=== PATIENT | female | born 1995 | race Two or more races ===

== ENCOUNTER 2021-02-16 17:25 | Observation (INO) | payer OTHER ==
[~2021-02-16] VITALS: Ht 160 cm; Wt 85.3 kg
[2021-02-16] MEDS ORDERED: PREN-217 PO (17:49)
[2021-02-16] MEDS ORDERED: FOLI0.4T6 PO (17:49)
[2021-02-16 17:58] VITALS: BP 127/75
[2021-02-16 18:22] LABS: COVID AG,FIA SOURCE NASOPHARYNGEAL
[2021-02-16 19:08] LABS: ANION GAP 13 mmol/L (8-16); CALCIUM, TOTAL 9.5 mg/dL (8.8-10.5); CARBON DIOXIDE 23 mmol/L (22-29); CHLORIDE 101 mmol/L (98-107); CREATININE 0.72 mg/dL (0.60-1.30); GLOMERULAR FILTR. RATE CALC > 60 mL/min (>60); GLUCOSE,RANDOM 84 mg/dL (70-110); POTASSIUM 4.5 mmol/L (3.5-5.1); SODIUM SERUM 137 mmol/L (136-145); UREA NITROGEN, BLOOD 8 mg/dL (7-18)
[2021-02-16 19:11] LABS: BASOPHILS % (AUTO) 0.3 % (0.0-2.0); EOSINOPHILS % (AUTO) 0.5 % (1.0-6.0); HEMATOCRIT 33.7 % (36-46); HEMOGLOBIN 11.4 g/dL (12.0-16.0); LYMPHOCYTES # (AUTO) 1.5 K/uL (1.0-4.8); LYMPHOCYTES % (AUTO) 20.2 % (22.0-44.0); MEAN CORPUSCULAR HGB CONC 33.8 G/dL (31.0-37.0); MEAN CORPUSCULAR VOLUME 92 fL (80-100); MONOCYTES # (AUTO) 0.5 K/uL (0.1-1.0); MONOCYTES % (AUTO) 6.1 % (2.0-9.0); NEUTROPHILS # (AUTO) 5.4 K/uL (1.8-7.7); NEUTROPHILS % (AUTO) 72.9 % (40.0-70.0); PLATELET COUNT (AUTO) 220 K/uL (150-450); RED BLOOD CELL COUNT(AUTO) 3.68 MIL/uL (4.00-5.20); RED CELL DISTRIBUTION WIDTH 13.2 % (11.5-14.5)
[2021-02-16 19:16] LABS: ALANINE AMINOTRANSFERASE 22 U/L (12-78); ALBUMIN 2.7 g/dL (3.4-5.0); ALKALINE PHOSPHATASE 235 U/L (46-116); ASPARTATE AMINOTRANSFERASE 32 U/L (15-37); BILIRUBIN,TOTAL 0.3 mg/dL (0.1-1.0); TOTAL PROTEIN, SERUM 7.3 g/dL (6.4-8.2); URIC ACID 4.1 mg/dL (2.6-7.2)
== END 2021-02-16 20:00 | disposition home or self-care (01) ==
LOC: 4S 17:25
PROVIDERS: ADMIT Obstetrics & Gynecology; ATTEND Obstetrics & Gynecology
DX: O13.3 Gestational [pregnancy-induced] hypertension without significant proteinuria, third trimester (principal); Z20.822 Contact with and (suspected) exposure to COVID-19; Z3A.38 38 weeks gestation of pregnancy
CPT/HCPCS: 59025; 82570; 84156; 84550; 87426; 96360; 96361; 99219

== ENCOUNTER 2021-02-23 13:10 | Observation (INO) | payer OTHER ==
[~2021-02-23 13:10] MED LIST: FOLI0.4T6 PO; PREN-217 PO
[2021-02-23 15:16] LABS: COVID AG,FIA SOURCE NASOPHARYNGEAL
== END 2021-02-23 13:20 | disposition home or self-care (01) ==
LOC: 4S 13:10
PROVIDERS: ADMIT Obstetrics & Gynecology; ATTEND Obstetrics & Gynecology
DX: Z34.93 Encounter for supervision of normal pregnancy, unspecified, third trimester (principal); Z20.822 Contact with and (suspected) exposure to COVID-19; Z3A.38 38 weeks gestation of pregnancy
CPT/HCPCS: 87426; 99219

== ENCOUNTER 2021-02-24 09:55 | Inpatient (IN) | payer OTHER ==
[~2021-02-24] VITALS: Ht 160 cm; Wt 86.6 kg
[2021-02-24] MEDS ORDERED: CITRIC ACID/SODIUM CITRATE 30 ML SOLUTION UDCUP PO PRN (10:30)
[2021-02-24] MEDS ORDERED: METOCLOPRAMIDE HCL 5 MG/ML 2 ML VIAL IVP PRN (10:30)
[2021-02-24] MEDS ORDERED: OXYTOCIN 30 UNITS/LACT RINGERS 500 ML IV ONE (10:30)
[2021-02-24] MEDS ORDERED: RINGERS SOLUTION,LACTATED 1,000 ML IV PRN (10:30)
[2021-02-24 11:01] LABS: BASOPHILS % (AUTO) 0.5 % (0.0-2.0); EOSINOPHILS % (AUTO) 0.7 % (1.0-6.0); HEMATOCRIT 33.5 % (36-46); HEMOGLOBIN 11.3 g/dL (12.0-16.0); LYMPHOCYTES % (AUTO) 27.1 % (22.0-44.0); MEAN CORPUSCULAR HEMOGLOBIN 30.9 pg (26.0-34.0); MEAN CORPUSCULAR HGB CONC 33.8 G/dL (31.0-37.0); MEAN CORPUSCULAR VOLUME 92 fL (80-100); MONOCYTES # (AUTO) 0.6 K/uL (0.1-1.0); MONOCYTES % (AUTO) 8.1 % (2.0-9.0); NEUTROPHILS # (AUTO) 4.7 K/uL (1.8-7.7); NEUTROPHILS % (AUTO) 63.6 % (40.0-70.0); PLATELET COUNT (AUTO) 204 K/uL (150-450); RED BLOOD CELL COUNT(AUTO) 3.66 MIL/uL (4.00-5.20); RED CELL DISTRIBUTION WIDTH 13.5 % (11.5-14.5)
[2021-02-24] MEDS: RINGERS SOLUTION,LACTATED 1,000 ML IV SCH ×3 (11:05→21:34)
[2021-02-24] MEDS ORDERED: MISOPROSTOL 25 MCG TABLET VG ONE ×2 (11:15→17:00)
[2021-02-24 11:40] VITALS: BP 120/83
[2021-02-24] MEDS: FentaNYL CITRATE PF 100 MCG/2 ML VIAL IVP PRN ×2 (19:41→20:47)
[2021-02-24] MEDS ORDERED: OXYGEN THERAPY IH SCH (20:00)
[2021-02-24] MEDS ORDERED: ROPIVACAINE HCL/PF 0.2% 100 ML ED ONE (22:04)
[2021-02-24] MEDS ORDERED: DiphenhydrAMINE HCL 50 MG/ML VIAL IVP PRN (22:30)
[2021-02-24] MEDS ORDERED: ONDANSETRON HCL 4 MG/2 ML VIAL IVP PRN (22:30)
[2021-02-24] MEDS ORDERED: NALBUPHINE HCL 10 MG/ML VIAL IVP PRN (22:30)
[2021-02-24] MEDS ORDERED: ROPIVACAINE HCL/PF 0.2% 100 ML ED PRN (22:30)
[2021-02-24] MEDS ORDERED: OXYTOCIN 30 UNITS/LACT RINGERS 500 ML IV PRN (22:45)
[2021-02-25] MEDS ORDERED: BENZOCAINE 20%/MENTHOL 56 GM SPRAY CANISTER TP PRN (04:15)
[2021-02-25] MEDS ORDERED: GLYCERIN/WITCH HAZEL LEAF 40 PADS JAR TP PRN (04:15)
[2021-02-25] MEDS ORDERED: MEASLES/MUMPS/RUBELLA VACCINE, LIVE 0.5 ML VIAL SQ. ONE (04:15)
[2021-02-25] MEDS: IBUPROFEN 600 MG TABLET PO SCH ×4 (04:47→22:45)
[2021-02-25] MEDS ORDERED: LANOLIN 7 GM OINTMENT TP PRN (05:00)
[2021-02-25] MEDS: SENNA/DOCUSATE SODIUM 8.6-50 MG TABLET PO SCH ×2 (08:55→21:04)
[2021-02-26] MEDS: IBUPROFEN 600 MG TABLET PO SCH ×2 (04:49→11:23)
[2021-02-26 05:42] LABS: BASOPHILS % (AUTO) 0.4 % (0.0-2.0); EOSINOPHILS % (AUTO) 0.9 % (1.0-6.0); HEMATOCRIT 25.8 % (36-46); HEMOGLOBIN 8.7 g/dL (12.0-16.0); LYMPHOCYTES # (AUTO) 3.1 K/uL (1.0-4.8); MEAN CORPUSCULAR HEMOGLOBIN 31.3 pg (26.0-34.0); MEAN CORPUSCULAR HGB CONC 33.5 G/dL (31.0-37.0); MEAN CORPUSCULAR VOLUME 93 fL (80-100); MONOCYTES # (AUTO) 0.5 K/uL (0.1-1.0); NEUTROPHILS # (AUTO) 5.4 K/uL (1.8-7.7); NEUTROPHILS % (AUTO) 58.7 % (40.0-70.0); PLATELET COUNT (AUTO)-OB 170 K/uL (150-450); RED BLOOD CELL COUNT(AUTO) 2.77 MIL/uL (4.00-5.20); RED CELL DISTRIBUTION WIDTH 13.6 % (11.5-14.5)
[2021-02-26] MEDS ORDERED: IRON SUCROSE COMPLEX 200 MG in SODIUM CHLORIDE 0.9% 100 ML IV ONE (08:30)
[2021-02-26] MEDS ORDERED: IBUP-2071 PO (09:18)
[2021-02-26] MEDS: SENNA/DOCUSATE SODIUM 8.6-50 MG TABLET PO SCH (09:50)
== END 2021-02-26 12:20 | disposition home or self-care (01) | DRG 560 ==
LOC: 4S 09:55 → OBSVTOIN 09:55
PROVIDERS: ADMIT Student in an Organized Health Care Education/Training Program; ATTEND Student in an Organized Health Care Education/Training Program
PROC: 10E0XZZ Delivery of Products of Conception, External Approach (ICD-10-PCS; principal; 2021-02-25)
PROC: 0UQMXZZ Repair Vulva, External Approach (ICD-10-PCS; 2021-02-25)
PROC: 3E033VJ Introduction of Other Hormone into Peripheral Vein, Percutaneous Approach (ICD-10-PCS; 2021-02-25)
PROC: 3E0R3BZ Introduction of Anesthetic Agent into Spinal Canal, Percutaneous Approach (ICD-10-PCS; 2021-02-25)
PROC: 00HU33Z Insertion of Infusion Device into Spinal Canal, Percutaneous Approach (ICD-10-PCS; 2021-02-25)
PROC: 3E0234Z Introduction of Serum, Toxoid and Vaccine into Muscle, Percutaneous Approach (ICD-10-PCS; 2021-02-25)
DX: O69.81X0 Labor and delivery complicated by cord around neck, without compression, not applicable or unspecified (principal); O70.0 First degree perineal laceration during delivery; Z23 Encounter for immunization; Z37.0 Single live birth; Z3A.39 39 weeks gestation of pregnancy
CPT/HCPCS: 86850; 86900; 86901; 90707; J1756; J2590; J2795; J3010; J7050; J7120